=== PATIENT | female | born 1985 | race Caucasian/White ===

== ENCOUNTER → 2017-03-02 | Outpatient (REF) ==
[~2017-03-02] MED LIST: [UNRECOGNIZED DRUG - OTHER]
[2017-03-02 14:32] LABS: THYROID STIMULATING HORMONE 2.24 uIU/mL (0.465-4.680)
== END ==
LOC: ZLAB.WCH 10:34
PROVIDERS: Psychiatry & Neurology Psychiatry
DX: Z01.89 Encounter for other specified special examinations (principal)

== ENCOUNTER → 2017-03-03 | Outpatient (CLI) | payer BC | LOC: BHSO 10:41 | DX: F31.74 Bipolar disorder, in full remission, most recent episode manic (principal) ==

== ENCOUNTER → 2017-05-26 | Outpatient (CLI) | payer BC | LOC: BHSO 09:46 | DX: F31.73 Bipolar disorder, in partial remission, most recent episode manic (principal) ==

== ENCOUNTER 2019-12-06 05:42 | Inpatient (IN) | payer BC ==
[2019-12-06] VITALS (20 sets, daily range): BP systolic 90–130; BP diastolic 53–81; PULSE 58–109; TEMP 97–98.8
[~2019-12-06] VITALS: Ht 160 cm; Wt 89.5 kg
--- NOTE | 2019-12-06 05:50 | NUR ---
Ambulatory to unit for scheduled repeat C/S, accompanied by spouse.
--- NOTE | 2019-12-06 06:33 | NUR ---
Recieved report from BETHANY Cutler. Patient WL with EFM tracing FHR, reactive strip. Taken off EFM per protocol. VSS, see assessment. Assessment complete. IV to left hand, blood collected and sent to lab per orders. COTY Moon to patient room. Reviews spinal with patient. 0648-Preop medications given,see EMAR. Mons pubis trimmed and abdomen cleansed. 0718-Patient ambulatory to OR with spouse.
[2019-12-06 06:52] LABS: BASO % 0.3 % (0.0-2.0); EOS # 0.2 (0.0-0.7); EOS % 1.6 % (0-4.0); GRAN # 6.9 (1.4-6.5); HEMOGLOBIN 12.2 g/dl (12.5-16.0); LYMPH # 2.2 (1.2-3.4); LYMPH % 21.6 % (20.0-51.0); MEAN CELL VOLUME 89 fl (80.0-100.0); MEAN CORPUSCULAR HEMOGLOBIN 30 pg (27.0-31.0); MEAN CORPUSCULAR HGB CONC 34 g/dl (33.0-37.0); MEAN PLATELET VOLUME 10.1 fl (7.4-10.4); MONO # 0.8 (0.1-0.6); MONO % 7.8 % (1.7-9.3); PLATELET COUNT 214 K/mm3 (130-400); RED BLOOD COUNT 4.05 M/mm3 (4.10-5.30); REDCELL DISTRIBUTION WIDTH-CV 13.1 % (11.5-14.5)
[2019-12-06 06:59] LABS: HEMATOCRIT 36.2 % (37.0-47.0)
--- NOTE | 2019-12-06 08:25 | NUR ---
0825-Patient A&O x4. Taken to PACU via bed. Recieved report from COTY Moon. VSS, see PACU flow record. IVF infusing to left hand IV per orders. Quiroz to DD, clear yellow urine return. Abdominal dressing C/D/I. Binder to Abdomen, fundal massage firm, lochia WNL. Assessment complete. Updated on plan of care. Spouse remains at bedside.
--- NOTE | 2019-12-06 09:00 | NUR ---
0900-Patient to room via bed. Oriented to room. Updated on plan of care and safety. SCD's bilaterally, Instructed on IS. VSS, difficulty obtaining oral temp above 96.0 F, notified COTY Moon instructed to attemp extremity temp. Difficulty obtaining axillary temp. Vaginal temp 97.6. Warm blankets and warm compress to axiallry. 1000-Oral temp 97.0. Warm blankets reapplied 1030-Fundal massage firm, clot expressed slightly larger than a golf balls size, no free flow, fundus remains firm. BP 90/58.
[2019-12-07 02:30] VITALS: BP 112/67; PULSE 79; TEMP 98.4
[2019-12-07 07:00] VITALS: BP 116/66; PULSE 95; TEMP 98.8
[2019-12-07 07:50] LABS: HEMOGLOBIN 10.3 g/dl (12.5-16.0)
[2019-12-07 07:51] LABS: HEMATOCRIT 30.8 % (37.0-47.0)
--- NOTE | 2019-12-07 12:16 | NUR ---
stopped by and offered congrats.
[2019-12-07 15:55] VITALS: BP 121/71; PULSE 74; TEMP 98.5
[2019-12-07 19:30] VITALS: BP 136/77; PULSE 81; TEMP 98.1
[2019-12-08 07:15] VITALS: BP 130/70; PULSE 83; TEMP 98.2
[2019-12-08] MEDS ORDERED: MOTRIN 800800 MG/TAB PO (07:31)
[2019-12-08] MEDS ORDERED: PERCOCET 325 MG1 TA2 PO (07:31)
== END 2019-12-08 11:55 | disposition home or self-care (01) | DRG 788 ==
LOC: OB 05:42 → LDR 06:23 → OB 12-08 11:55
PROVIDERS: ADMIT Obstetrics & Gynecology
PROC: 10D00Z1 Extraction of Products of Conception, Low, Open Approach (ICD-10-PCS; principal; 2019-12-06)
DX: O34.211 Maternal care for low transverse scar from previous cesarean delivery (principal); O99.344 Other mental disorders complicating childbirth; F41.9 Anxiety disorder, unspecified; N39.3 Stress incontinence (female) (male); F31.9 Bipolar disorder, unspecified; O75.89 Other specified complications of labor and delivery; Z3A.39 39 weeks gestation of pregnancy; Z37.0 Single live birth; O99.334 Smoking (tobacco) complicating childbirth; F17.210 Nicotine dependence, cigarettes, uncomplicated
CPT/HCPCS: J0690; J1885; J2270; J2370; J2405; J2590; J7120